=== PATIENT | female | born 1960 | race African-American/Black ===

== ENCOUNTER 2019-04-02 23:20 | Emergency (ER) | payer MEDICARE ==
[~2019-04-02] VITALS: Ht 167.6 cm; Wt 79.1 kg
[2019-04-02 23:25] VITALS: TEMP 97.7
[2019-04-03] LABS: BASO # 0.1 (0.0-0.2); BASO % 0.9 % (0.0-2.0); EOS # 0.1 (0.0-0.7); EOS % 1.2 % (0-4.0); GRAN # 2.9 (1.4-6.5); GRAN % 36.9 % (42.2-75.2); HEMATOCRIT 36.4 % (37.0-47.0); HEMOGLOBIN 12.7 g/dl (12.5-16.0); LYMPH # 4.1 (1.2-3.4); LYMPH % 52.6 % (20.0-51.0); MEAN CELL VOLUME 88 fl (80.0-100.0); MEAN CORPUSCULAR HEMOGLOBIN 31 pg (27.0-31.0); MEAN CORPUSCULAR HGB CONC 35 g/dl (33.0-37.0); MEAN PLATELET VOLUME 12.3 fl (7.4-10.4); MONO # 0.6 (0.1-0.6); MONO % 8.1 % (1.7-9.3); PLATELET COUNT 243 K/mm3 (130-400); RED BLOOD COUNT 4.14 M/mm3 (4.10-5.30); REDCELL DISTRIBUTION WIDTH-CV 11.8 % (11.5-14.5)
[2019-04-03 00:02] LABS: PROTHROMBIN TIME 11.3 SECONDS (9.7-12.8)
[2019-04-03 00:03] LABS: ALANINE AMINOTRANSFERASE 21 U/L (9-52); ALBUMIN 4.3 gm/dL (3.5-5.0); ALKALINE PHOSPHATASE 91 U/L (50-136); ANION GAP 12 mmol/L (7-16); AST,SGOT 27 U/L (15-37); BILIRUBIN,TOTAL 0.4 mg/dL (0.0-1.0); BLOOD UREA NITROGEN 22 mg/dL (7-17); CARBON DIOXIDE 27 mmol/L (22-30); CHLORIDE 102 mmol/L (98-107); CREATININE, serum 1.13 (0.52-1.25); GLUCOSE 133 mg/dL (74-106); LIPASE 463 U/L (23-300); POTASSIUM 3.7 mmol/L (3.4-5.0); SODIUM 141 mmol/L (137-145)
[2019-04-03 00:04] LABS: C-REACTIVE PROTEIN 0.5 mg/dL (0.0-0.9)
[2019-04-03 00:05] LABS: PARTIAL THROMBOPLASTIN TIME 33.1 SECONDS (26.0-37.0)
[2019-04-03 00:13] LABS: TROPONIN-I < 0.012 ng/mL (0.000-0.035)
[2019-04-03] MEDS ORDERED: LEXAPRO 5MG5 MG PO (02:08)
[2019-04-03] MEDS ORDERED: PRINZIDE 25 MG-1 TAB PO (02:08)
[2019-04-03] MEDS ORDERED: LIPITOR 40MG TA40 MG PO (02:08)
[2019-04-03] MEDS ORDERED: TOPROL XL 25MG25 MG PO (02:09)
[2019-04-03] MEDS ORDERED: NORVASC 5MG5 MG/TAB PO (02:09)
[2019-04-03] MEDS ORDERED: ASPIRIN 81M81 MG/TA2 PO (02:09)
[2019-04-03] MEDS ORDERED: KEPPRA 500MG500 MG PO (02:10)
[2019-04-03 03:00] VITALS: BP 139/81; PULSE 60
== END 2019-04-03 03:00 | disposition home or self-care (01) ==
LOC: COL.ER 23:20 → EDBD 23:21 → COL.ER 23:21
PROVIDERS: Emergency Medicine
DX: R07.9 Chest pain, unspecified (principal); I10 Essential (primary) hypertension; E78.5 Hyperlipidemia, unspecified; I69.398 Other sequelae of cerebral infarction; R56.9 Unspecified convulsions; Z79.82 Long term (current) use of aspirin

== ENCOUNTER 2019-05-26 15:34 | Emergency (ER) | payer MEDICARE ==
[~2019-05-26] VITALS: Ht 167.6 cm; Wt 77.3 kg
[~2019-05-26 15:34] MED LIST: ASPIRIN 81M81 MG/TA2 PO; KEPPRA 500MG500 MG PO; LEXAPRO 5MG5 MG PO; LIPITOR 40MG TA40 MG PO; NORVASC 5MG5 MG/TAB PO; PRINZIDE 25 MG-1 TAB PO; TOPROL XL 25MG25 MG PO
[2019-05-26 15:39] VITALS: TEMP 97.6
[2019-05-26 16:31] LABS: BASO # 0.1 (0.0-0.2); BASO % 1.1 % (0.0-2.0); EOS # 0.1 (0.0-0.7); EOS % 1.1 % (0-4.0); GRAN % 42.4 % (42.2-75.2); HEMATOCRIT 38.4 % (37.0-47.0); HEMOGLOBIN 13.1 g/dl (12.5-16.0); LYMPH # 3.3 (1.2-3.4); LYMPH % 46.4 % (20.0-51.0); MEAN CELL VOLUME 89 fl (80.0-100.0); MEAN CORPUSCULAR HEMOGLOBIN 30 pg (27.0-31.0); MEAN CORPUSCULAR HGB CONC 34 g/dl (33.0-37.0); MEAN PLATELET VOLUME 12.1 fl (7.4-10.4); MONO # 0.6 (0.1-0.6); MONO % 8.9 % (1.7-9.3); PLATELET COUNT 246 K/mm3 (130-400); RED BLOOD COUNT 4.34 M/mm3 (4.10-5.30); REDCELL DISTRIBUTION WIDTH-CV 11.8 % (11.5-14.5)
[2019-05-26 16:48] LABS: ALANINE AMINOTRANSFERASE 27 U/L (9-52); ALBUMIN 4.3 gm/dL (3.5-5.0); ALKALINE PHOSPHATASE 96 U/L (50-136); ANION GAP 13 mmol/L (7-16); AST,SGOT 31 U/L (15-37); BILIRUBIN,TOTAL 0.7 mg/dL (0.0-1.0); BLOOD UREA NITROGEN 18 mg/dL (7-17); CALCIUM 10.1 mg/dL (8.4-10.2); CARBON DIOXIDE 27 mmol/L (22-30); CHLORIDE 101 mmol/L (98-107); CREATININE, serum 1.02 (0.52-1.25); GLUCOSE 96 mg/dL (74-106); LIPASE 94 U/L (23-300); POTASSIUM 4.2 mmol/L (3.4-5.0); SODIUM 141 mmol/L (137-145); TOTAL PROTEIN 8.3 gm/dL (6.4-8.2)
[2019-05-26 16:50] LABS: COLLECTION METHOD CLEAN CATCH
[2019-05-26 17:01] LABS: MUCOUS Present /lpf; PH 5 (5-8); SQUAMOUS EPITHELIAL 0-2 /hpf; URINE APPEARANCE Clear; URINE BACTERIA None Seen /hpf; URINE BILIRUBIN Negative (NEGATIVE); URINE BLOOD Negative (NEGATIVE); URINE COLOR Yellow; URINE GLUCOSE Negative (NEGATIVE); URINE KETONE Negative (NEGATIVE); URINE LEUKOCYTE ESTERASE Negative (NEGATIVE); URINE NITRATE Negative (NEGATIVE); URINE PROTEIN(semi-quant) Negative (NEGATIVE); URINE RBC 0-2 /hpf; URINE UROBILINOGEN >=4.0 mg/dL (NEGATIVE)
[2019-05-26 17:05] LABS: TROPONIN-I < 0.012 ng/mL (0.000-0.035)
[2019-05-26] MEDS ORDERED: PRILOSEC 20MG20 MG PO (17:32)
[2019-05-26 17:47] VITALS: BP 140/76; PULSE 52
== END 2019-05-26 17:54 | disposition home or self-care (01) ==
LOC: COL.ER 15:34
PROVIDERS: Emergency Medicine
DX: R10.13 Epigastric pain (principal); I10 Essential (primary) hypertension; E78.5 Hyperlipidemia, unspecified; Z86.73 Personal history of transient ischemic attack (TIA), and cerebral infarction without residual deficits; Z79.82 Long term (current) use of aspirin

== ENCOUNTER 2019-06-21 15:30 | Outpatient (RCR) | payer MEDICARE ==
[~2019-06-21 15:30] MED LIST changes: +PRILOSEC 20MG20 MG PO
== END 2019-06-27 | disposition home or self-care (01) ==
LOC: MKS.ESL.PT
DX: I69.820 Aphasia following other cerebrovascular disease (principal); I69.890 Apraxia following other cerebrovascular disease; I69.351 Hemiplegia and hemiparesis following cerebral infarction affecting right dominant side; I69.322 Dysarthria following cerebral infarction; R56.9 Unspecified convulsions

== ENCOUNTER 2019-08-07 14:15 | Outpatient (RCR) | payer MEDICARE | END 2019-09-26 | disposition home or self-care (01) | LOC: MKS.ESL.PT | DX: I69.351 Hemiplegia and hemiparesis following cerebral infarction affecting right dominant side (principal); I69.328 Other speech and language deficits following cerebral infarction; I69.322 Dysarthria following cerebral infarction ==

== ENCOUNTER → 2019-08-29 | Outpatient (CLI) | payer MEDICARE | LOC: COL.RAD 08:41 | DX: K21.9 Gastro-esophageal reflux disease without esophagitis (principal); I51.7 Cardiomegaly ==

== ENCOUNTER 2019-12-19 08:50 | Outpatient (CLI) | payer MEDICARE ==
[~2019-12-19] VITALS: Ht 167.6 cm; Wt 68.4 kg
[2019-12-19] VITALS (7 sets, daily range): BP systolic 121–138; BP diastolic 78–88; PULSE 66–101; TEMP 97.4
[2019-12-19] MEDS ORDERED: PRIL40 PO (09:55)
[2019-12-19] MEDS ORDERED: STOOL SOFTENER100 M2 PO (09:58)
--- NOTE | 2019-12-19 11:40 | NUR ---
Discharge instructions given. Transferred to private car [place] own [place].
[2019-12-19] MEDS ORDERED: CEPHALEXIN500 M1 PO (12:10)
== END 2019-12-19 11:40 | disposition home or self-care (01) ==
LOC: COL.CAR 08:50
DX: I63.9 Cerebral infarction, unspecified (principal); I10 Essential (primary) hypertension; Z90.710 Acquired absence of both cervix and uterus; G40.909 Epilepsy, unspecified, not intractable, without status epilepticus